=== PATIENT | male | born 1960 | race Two or more races ===

== ENCOUNTER 2024-07-11 16:37 | Emergency (ER) | payer MEDICAID, SELFPAY ==
[2024-07-11] VITALS (7 sets, daily range): BP systolic 116–126; BP diastolic 74–94; PULSE 70–97; RESP 16–17; TEMP 36.8–36.9; O2SAT 94–99; BMI 24.0
--- NOTE | 2024-07-11 16:57 | PC.NURSE ---
Pt is in the bathroom
[2024-07-11 19:07] LABS: Basophils % (Auto) 0 % (0-2.5); Eosinophils # (Auto) 0.1 Thou/mm3 (0.0-0.5); Eosinophils % (Auto) 0 % (0-10); Hematocrit 41.6 % (41.0-53.0); Immature Granulocytes % (Auto) 7 % (0-0); Immature Granulocytes Auto 0.94 Thou/mm3 (0.00-0.00); Lymphocytes # (Auto) 2.2 Thou/mm3 (1.0-4.8); Lymphocytes % (Auto) 16 % (10-50); Mean Corpuscular HGB Conc 33.7 g/dl (31.0-37.0); Mean Corpuscular Hemoglobin 27.9 pg (25.0-35.0); Mean Corpuscular Volume 83 fL (80-100); Monocytes # (Auto) 1.5 Thou/mm3 (0.0-0.8); Monocytes % (Auto) 11 % (0-12); Neutrophils # (Auto) 8.9 Thou/mm3 (1.8-7.7); Neutrophils % (Auto) 65 % (37-80); Nucleated Red Blood Cell % 0 /100 WBC (0); Platelet Count 368 Thou/mm3 (140-440); RDW Standard Deviation 41.9 fL (35.1-43.9); Red Blood Count 5.01 Miln/mm3 (4.50-5.90); White Blood Count 13.7 Thou/mm3 (3.8-10.6)
[2024-07-11 19:20] LABS: Alanine Aminotransferase 27 U/L (10-49); Albumin, Serum 3.9 gm/dL (3.4-4.8); Albumin/Globulin Ratio 1.3 (1.2-2.2); Alkaline Phosphatase 52 U/L (46-116); Anion Gap 7 (7-16); Aspartate Amino Transferase 25 U/L (0-34); BUN/Creatinine Ratio 12 Ratio (12-20); Bilirubin,Total 0.4 mg/dL (0.3-1.2); Blood Urea Nitrogen 11 mg/dL (9-23); Calcium 8.6 mg/dL (8.3-10.6); Calcium (Corrected) 8.7 mg/dL (8.5-10.1); Carbon Dioxide 28.1 mMol/L (20.0-31.0); Chloride 93 mMol/L (98-107); Creatinine (Component) 0.9 mg/dL (0.6-1.3); Estimated Creatinine Clearance 70.3 mL/min (>60); Glucose 118 mg/dL (74-106); Lipase 25 U/L (12-53); Osmolality,Calculated 257 (275-295); Potassium 3.6 mMol/L (3.4-5.1); Sodium 128 mMol/L (136-145); Total Protein 6.9 gm/dL (5.7-8.2); eGFR > 60 See Note
[2024-07-11 20:15] LABS: Collection Type, Urine Clean Catch; Squamous Epithelial Cell,Urine 0 /hpf (0-5)
[2024-07-11 20:30] LABS: Bilirubin,Urine Negative (Negative); Blood,Urine 2+ (Negative); Clarity,Urine Clear (Clear/Hazy); Color,Urine Yellow (Lt Yel-Yel); Culture Indicated,Urine Not Indicated; Glucose, Urine Negative (Negative); Ketones,Urine 1+ (Negative); Leukocyte Esterase,Urine Positive (Negative); Nitrite,Urine Negative (Negative); PH,Urine 6.5 (5.0-7.0); Protein,Urine 1+ (Neg - Trace); RBC,Urine 14 /hpf (0-3); Specific Gravity,Urine 1.023 (1.001-1.035); Urobilinogen,Urine Negative mg/dL (0.0-1.0); WBC,Urine 5 /hpf (0-5)
--- NOTE | 2024-07-11 20:49 | PD.EDNV ---
Nausea/Vomit./Diarrhea-RME/HPI General Chief complaint: Nausea/Vomiting/Diarrhea Stated complaint: Diarrhea X 8 days Time Seen by Provider: 07/11/24 16:52 Arrival date/time: 07/11/24 16:37 RME / HPI RME / HPI Narrative: 64-year-old male patient with no significant past medical history, came in for evaluation regarding diarrhea. Patient's been having diarrhea for the last 8 days, severity moderate nonbloody. Patient told me that every time patient ate patient will just go to the restroom. Denies any fever denies any vomiting denies any other complaints no medication was taken prior to arrival. Related Data Previous Rx's ?Medication ?Instructions ?Recorded ciprofloxacin HCl 500 mg tablet 500 mg PO BID #14 tabs 07/11/24 (Cipro) loperamide 2 mg capsule 2 mg PO Q6H PRN loose stool #30 07/11/24 caps metronidazole 500 mg tablet 500 mg PO BID 7 days #14 tabs 07/11/24 Allergies Allergy/AdvReac Type Severity Reaction Status Date / Time Penicillins Allergy Verified 07/11/24 17:36 Review of Systems Review of Systems Narrative Review of Systems: Review of system reviewed and within normal limits except mentioned in HPI ED Exam Narrative Physical exam: VITAL SIGNS: Reviewed. GENERAL APPEARANCE: Alert and interactive, follows commands, no acute distress, HEAD AND FACE: Non-traumatic. ENT: PERRL, pink conjunctivitis, eyelid no trauma, Mucous membrane moist. NECK: Supple, nontender, no nuchal rigidity. CHEST: No tenderness, no crepitus, no paradoxical movement, no retractions. LUNGS: Clear, well ventilated, symmetric, no rales, no wheezing, no ronchi, no stridor, good breath sounds bilaterally. HEART: Regular rate, regular rhythm, no murmur, no gallops. ABDOMEN: Soft, positive bowel sounds, nondistended, no guarding, nontender, no rebound, no masses, RECTAL: Deferred. GENITAL: Deferred. NEUROLOGICAL: Gross motor function intact sensory function intact, Appropriate for age. MUSCULOSKELETAL: low back nontender, full range of motion. EXTREMITIES: Nontender, full range of motion. SKIN: Color pink, dry, no rash, no lacerations, no abrasions, no contusions. LYMPHATICS: Deferred. Course Quality Measures none Orders Category Date Time Status CBC Stat Lab 07/11/24 18:46 Completed Comprehensive Metabolic Panel Stat Lab 07/11/24 18:46 Completed Lipase Stat Lab 07/11/24 18:46 Completed Stool Culture Stat Lab 07/11/24 17:32 Received Stool for WBCs Stat Lab 07/11/24 18:40 Completed UA, C/S IF [Urinalysis, C/S if Indicated] Stat Lab 07/11/24 20:06 Completed c diff [Clostridium Difficile PCR] Stat Lab 07/11/24 18:40 Received Ciprofloxacin HCl [Ciprofloxacin] Med 07/11/24 20:48 Discontinued 500 mg PO X1 ONE Diphenoxylate/Atrop Sulf [Lomotil] Med 07/11/24 20:48 Discontinued 2 tab PO X1 ONE metroNIDAZOLE [Flagyl] Med 07/11/24 20:48 Discontinued 500 mg PO X1 ONE Vital Signs Vital signs: Vital Signs Temperature 98.2 F 07/11/24 17:29 Pulse Rate 70 07/11/24 17:29 Respiratory Rate 17 07/11/24 17:29 Blood Pressure 123/75 07/11/24 17:29 Pulse Oximetry (%) 99 07/11/24 17:29 Oxygen Delivery Method Room Air 07/11/24 17:29 Nausea/Vomiting/Diarrhea MDM Narrative MDM Narrative:: 64-year-old male patient with no significant past medical history, came in for evaluation regarding diarrhea. Patient's been having diarrhea for the last 8 days, severity moderate nonbloody. Patient told me that every time patient ate patient will just go to the restroom. Denies any fever denies any vomiting denies any other complaints no medication was taken prior to arrival. Patient's workup is significant for WBC in the stool. Slight leukocytosis of 13.7 dorsal labs unremarkable. Patient received Cipro Flagyl and Lomotil in the ED with significant progress symptoms. Patient told me so far he had no bowel movement in the ED. Patient data External records reviewed:: None Clinical information provided by:: none Social determinants that could affect healthcare access:: none Patient has the following chronic illnesses:: None How is presenting disease/condition affected by chronic disease/condition?: no chronic disease Evaluation data The following diagnostics were reviewed and interpreted by me:: lab results Lab and/or radiology exams considered but not ordered:: None Interpretation Summary: Patient's workup is significant for WBC in the stool. Slight leukocytosis of 13.7 dorsal labs unremarkable. Medications / Prescriptions Medications / Prescriptions considered but not ordered:: None Medication administrations:: Medication Administration History Discontinued Medications Ciprofloxacin (Ciprofloxacin Hcl 250 Mg Tablet) 500 mg PO X1 ONE Stop: 07/11/24 20:49 Last Admin: 07/11/24 21:10 Dose: 500 mg Documented By: THERON Diphenoxylate HCl/Atropine (Diphenoxylate/Atrop Sulf 1 Tab) 2 tab PO X1 ONE Stop: 07/11/24 20:49 Last Admin: 07/11/24 21:10 Dose: 2 tab Documented By: THERON Metronidazole (Metronidazole 250 Mg Tablet) 500 mg PO X1 ONE Stop: 07/11/24 20:49 Last Admin: 07/11/24 21:10 Dose: 500 mg Documented By: THERON Nieves and Cipro Consultations Consultation(s) initiated? (list below): No Diagnosis Nausea Differential Diagnosis: traveler's diarrhea and gastroenteritis Most likely diagnosis given after review of the tests above:: Gastroenteritis Admission Indicated Admission indicated?: not indicated Admission Request Was there a request for admission?: No Disposition Plan Disposition Plan: Discharge Discharge Attestation Discharge Attestation: The patient was given an opportunity to ask questions and understood the discharge instructions. Discharge instructions specifically effects, indications for sooner follow up or return to the emergency department, and the expected course of current diagnosis. Patient condition: Stable Discharge Plan Plan Patient Disposition: HOME (Self Care) Disposition Comment: Stable Prescriptions/Referrals Prescriptions/Med Rec: New ciprofloxacin HCl [Cipro] 500 mg tablet 500 mg PO BID Qty: 14 0RF metronidazole 500 mg tablet 500 mg PO BID 7 Days Qty: 14 0RF loperamide 2 mg capsule 2 mg PO Q6H PRN (Reason: loose stool) Qty: 30 0RF Referrals: No Primary/Family,Physician [Primary Care Provider] - In 1 week Problem List Clinical Impression: Gastroenteritis Patient/Caregiver Discharge Instructions Discharge Activity: activity as tolerated Education Materials: Anatomy of the Digestive System, Understanding Colitis Additional Instructions: Thank you for the opportunity for serving you today. You are stable for discharged . You are advised to: Follow-up with your PCP in 1 to 2 days Return to ED for worsening of symptoms Increase oral fluids Take medication as prescribed Print Language: Luxembourgish Stand Alone Forms: Mary Jane Award Info., Patient Portal Info Letter PA/PRODUCT INSPECTION COORDINATOR Supervising Physician ANA MARÍA/PRODUCT INSPECTION COORDINATOR Supervising Physician: MD Renetta
[2024-07-11] MEDS: CIPROFLOXACIN HCL 250 MG TABLET 500 MG PO (21:10)
[2024-07-11] MEDS: metroNIDAZOLE 250 MG TABLET 500 MG PO (21:10)
[2024-07-11] MEDS: DIPHENOXYLATE/ATROP SULF 1 TAB 2 TAB PO (21:10)
[2024-07-11 21:17] LABS: Stool for WBCs 3+ (Negative)
[2024-07-12 07:44] LABS: Clostridium Difficile PCR Negative (Negative)
== END 2024-07-11 23:07 | disposition home or self-care (01) ==
PROVIDERS: Nurse Practitioner Primary Care; Emergency Provider Emergency Medicine
DX: K52.9 Noninfective gastroenteritis and colitis, unspecified (principal)
CPT/HCPCS: 36415; 80053; 81001; 83690; 85025; 87015; 87045; 87046; 87205; 87493; 87899; 99283; A9270